=== PATIENT | female | born 1950 | race Native Hawaiian/Other Pacific Islander ===

== ENCOUNTER 2016-11-19 06:54 | Outpatient (CLI) | payer OTHER ==
[2016-11-19 07:59] LABS: PLATELET COUNT 290 K/uL (152-353)
[2016-11-19 08:26] LABS: POTASSIUM 4.7 mmol/L (3.6-5.2); SODIUM 135 mmol/L (136-145)
== END 2016-11-19 18:56 | disposition home or self-care (01) ==
LOC: LABW 06:54
PROVIDERS: Internal Medicine
DX: E11.9 Type 2 diabetes mellitus without complications (principal); E03.8 Other specified hypothyroidism
CPT/HCPCS: 36415; 80053; 80061; 81000; 82043; 82570; 83036; 84439; 84443; 85027

== ENCOUNTER 2016-12-08 09:18 | Outpatient (CLI) | payer OTHER | END 2016-12-08 19:44 | disposition home or self-care (01) | LOC: MAMMO 09:18 | DX: Z12.31 Encounter for screening mammogram for malignant neoplasm of breast (principal) | CPT/HCPCS: G0202-TC ==

== ENCOUNTER 2017-05-20 06:56 | Outpatient (CLI) | payer OTHER ==
[2017-05-20 07:42] LABS: PLATELET COUNT 290 K/uL (152-353)
[2017-05-20 07:55] LABS: POTASSIUM 5.3 mmol/L (3.6-5.2); SODIUM 137 mmol/L (136-145)
== END 2017-05-20 08:00 | disposition home or self-care (01) ==
LOC: LABW 06:56
PROVIDERS: Internal Medicine
DX: E11.9 Type 2 diabetes mellitus without complications (principal); E03.8 Other specified hypothyroidism
CPT/HCPCS: 36415; 80053; 80061; 81000; 82043; 82570; 83036; 84439; 84443; 85027

== ENCOUNTER 2017-08-24 14:19 | Outpatient (CLI) | payer OTHER ==
[2017-08-24 14:35] LABS: PLATELET COUNT 255 K/uL (152-353)
[2017-08-24 14:57] LABS: POTASSIUM 4.9 mmol/L (3.6-5.2); SODIUM 136 mmol/L (136-145)
== END 2017-08-24 18:59 | disposition home or self-care (01) ==
LOC: LAB 14:19
PROVIDERS: Physician Assistant
DX: E03.8 Other specified hypothyroidism (principal); E11.9 Type 2 diabetes mellitus without complications
CPT/HCPCS: 80053; 80061; 83036; 84439; 84443; 85027

== ENCOUNTER 2018-02-09 10:15 | Outpatient (CLI) | payer OTHER ==
[2018-02-09 10:34] LABS: PLATELET COUNT 266 K/uL (152-353)
[2018-02-09 10:56] LABS: POTASSIUM 3.9 mmol/L (3.6-5.2)
== END 2018-02-09 19:58 | disposition home or self-care (01) ==
LOC: LABW 10:15
PROVIDERS: Physician Assistant
DX: L30.8 Other specified dermatitis (principal); B35.0 Tinea barbae and tinea capitis; L85.3 Xerosis cutis; E03.8 Other specified hypothyroidism
CPT/HCPCS: 36415; 80053; 84439; 84443; 85027; 86039

== ENCOUNTER 2018-12-13 08:46 | Outpatient (CLI) | payer OTHER | END 2018-12-13 22:24 | disposition home or self-care (01) | LOC: MAMMO 08:46 | DX: Z12.31 Encounter for screening mammogram for malignant neoplasm of breast (principal) ==

== ENCOUNTER 2019-12-15 08:38 | Outpatient (CLI) | payer OTHER | END 2019-12-15 18:58 | disposition home or self-care (01) | LOC: MAMMO 08:38 | DX: Z12.31 Encounter for screening mammogram for malignant neoplasm of breast (principal) ==

== ENCOUNTER 2021-07-08 11:21 | Outpatient (CLI) | payer OTHER ==
[2021-07-08 11:57] LABS: PLATELET COUNT 436 K/uL (152-353)
[2021-07-08 12:09] LABS: POTASSIUM 3.1 mmol/L (3.6-5.2)
== END 2021-07-08 19:34 | disposition home or self-care (01) ==
LOC: LABW 11:21
PROVIDERS: ATTEND Surgery Surgical Oncology
DX: Z01.818 Encounter for other preprocedural examination (principal); R19.09 Other intra-abdominal and pelvic swelling, mass and lump
CPT/HCPCS: 36415; 80053; 85027

== ENCOUNTER 2021-07-16 09:01 | Outpatient (CLI) | payer OTHER | END 2021-07-16 21:52 | disposition home or self-care (01) | LOC: LABW 09:01 | PROVIDERS: ATTEND Urology | DX: Z01.818 Encounter for other preprocedural examination (principal); R82.998 Other abnormal findings in urine | CPT/HCPCS: 81000; 87077; 87086; 87088; 87185 ==